=== PATIENT | female | born 1955 | race American Indian/Alaskan Native ===

== ENCOUNTER 2021-02-10 12:45 | Inpatient (IN) | payer MEDICARE ==
--- NOTE | 2021-02-10 13:23 | Emergency Department Report ---
HPI - General Time Seen by Provider: 02/10/21 13:06 - HPI HPI: Room 24 The patient is a 66-year-old female present with a chief complaint of palpitations. The patient states she was at [employer] standing putting together gift baskets when she suddenly felt her heart start racing. The patient states her watch indicated her heart rate was approximately 160/170 bpm. Patient jamey ed having chest pain and is uncertain if she developed shortness of breath but states she has some numbness in her feet. The patient states while driving home she began to feel dizzy and near syncopal but was able to make it home and call 911. EMS arrived found the patient in SVT with a heart rate of 165. The patient was administered adenosine 6 mg, another 6 mg and then 12 mg with successful conversion into normal sinus rhythm. When asked how she is feeling the patient states now she feels "fine." ED Past Medical Hx - Past Medical History Previous Medical History?: No - Surgical History Additional Surgical History: Back surgery - Family History Family history: no significant - Social History Smoking Status: Former Smoker (None x20 years) Substance Use Type: None (Denies illicit drug use), Alcohol (Moderate/occasional) - Medications Home Medications: Home Medications Medication Instructions Recorded Confirmed Last Taken Type No Known Home Medications [No 02/10/21 02/10/21 Unknown History Reported Home Medications] ED Review of Systems ROS: Stated complaint: HIGH HEART RATE Other details as noted in HPI Constitutional: no symptoms reported Eyes: denies: eye pain ENT: denies: throat pain Respiratory: shortness of breath (?) Cardiovascular: palpitations. denies: chest pain Endocrine: no symptoms reported Gastrointestinal: denies: abdominal pain Genitourinary: denies: dysuria Musculoskeletal: denies: back pain Neurological: other (Dizziness) Physical Exam - Physical Exam Physical Exam: GENERAL: The patient is well-developed well-nourished female lying on stretcher not appearing to be in acute distress. [] HEENT: Normocephalic. Atraumatic. Extraocular motions are intact. Patient has moist mucous membranes. NECK: Supple. Trachea midline CHEST/LUNGS: Clear to auscultation. There is no respiratory distress noted. HEART/CARDIOVASCULAR: Regular. There is no tachycardia. There is no gallop rub or murmur. ABDOMEN: Abdomen is soft, nontender. Patient has normal bowel sounds. There is no abdominal distention. SKIN: There is no rash. There is no edema. There is no diaphoresis. NEURO: The patient is awake, alert, and oriented. The patient is cooperative. The patient has no focal neurologic deficits. The patient has normal speech. GCS 15 MUSCULOSKELETAL: There is no evidence of acute injury. ED Medical Decision Making - Lab Data Result diagrams: 02/10/21 13:49 02/10/21 13:49 Laboratory Tests 02/10/21 02/10/21 02/10/21 13:23 13:49 13:49 WBC 6.4 RBC 4.65 Hgb 14.6 H Hct 41.0 MCV 88 MCH 32 MCHC 36 H RDW 13.4 Plt Count 177 Lymph % (Auto) 36.8 H [place] % (Auto) 10.2 H Eos % (Auto) 0.8 Baso % (Auto) 0.4 Lymph # (Auto) 2.3 [place] # (Auto) 0.6 Eos # (Auto) 0.0 Baso # (Auto) 0.0 Seg Neutrophils % 51.8 Seg Neutrophils # 3.3 Sodium 145 Potassium 3.9 Chloride 109.5 H Carbon Dioxide 23 Anion Gap 16 BUN 11 Creatinine 0.9 Estimated GFR > 60 BUN/Creatinine Ratio 12 Glucose 104 H Calcium 9.4 Magnesium 2.00 Total Bilirubin 0.50 AST 16 ALT 17 Alkaline Phosphatase 69 Total Creatine Kinase 132 CK-MB (CK-2) 2.6 CK-MB (CK-2) Rel Index 1.9 Troponin T 0.019 Total Protein 7.4 Albumin 4.5 Albumin/Globulin Ratio 1.6 TSH Free T4 Urine Opiates Screen Negative Urine Methadone Screen Negative Ur Barbiturates Screen Negative Ur Phencyclidine Scrn Negative Ur Amphetamines Screen Negative U Benzodiazepines Scrn Negative Urine Cocaine Screen Negative U Marijuana (THC) Screen Negative Drugs of Abuse Note Disclamer 02/10/21 13:49 WBC RBC Hgb Hct MCV MCH MCHC RDW Plt Count Lymph % (Auto) [place] % (Auto) Eos % (Auto) Baso % (Auto) Lymph # (Auto) [place] # (Auto) Eos # (Auto) Baso # (Auto) Seg Neutrophils % Seg Neutrophils # Sodium Potassium Chloride Carbon Dioxide Anion Gap BUN Creatinine Estimated GFR BUN/Creatinine Ratio Glucose Calcium Magnesium Total Bilirubin AST ALT Alkaline Phosphatase Total Creatine Kinase CK-MB (CK-2) CK-MB (CK-2) Rel Index Troponin T Total Protein Albumin Albumin/Globulin Ratio TSH 1.310 Free T4 1.02 Urine Opiates Screen Urine Methadone Screen Ur Barbiturates Screen Ur Phencyclidine Scrn Ur Amphetamines Screen U Benzodiazepines Scrn Urine Cocaine Screen U Marijuana (THC) Screen Drugs of Abuse Note - Radiology Data Radiology results: report reviewed (Chest x-ray), image reviewed (Chest x-ray) interpreted by me: Chest x-ray-no definite focal infiltrates, no pneumothorax [facility] [address] [place] [address] XRay Report Signed Patient: OPAL DAHL MR#: [id number] : 1955 Acct:[id number] Age/Sex: 66 / F ADM Date: 02/10/21 Loc: ED Attending Dr: Ordering Physician: LLOYD KRAFT MD Date of Service: 02/10/21 Procedure(s): XR chest 1V ap Accession Number(s): [id number] cc: LLOYD KRAFT MD Fluoro Time In Minutes: CHEST 1 VIEW INDICATION / CLINICAL INFORMATION: SVT. COMPARISON: None available. FINDINGS: SUPPORT DEVICES: None. HEART / MEDIASTINUM: No significant abnormality. LUNGS / PLEURA: Pulmonary vascularity appears mildly congested w ithout overt interstitial pulmonary edema. The lungs are otherwise clear. No pleural effusion. No pneumothorax. ADDITIONAL FINDINGS: No significant additional findings. IMPRESSION: 1. Mild pulmonary vascular congestion. Signer Name: Teodora Felipe MD Signed: 02/10/2021 2:27 PM Workstation Name: [id number] Transcribed By: JR Dictated By: Teodora Felipe MD Electronically Authenticated By: Teodora Felipe MD Signed Date/Time: 02/10/211426 DD/ 26 TD/TT: Print Cancel - Differential Diagnosis PSVT Critical care attestation.: If time is entered above; I have spent that time in minutes in the direct care of this critically ill patient, excluding procedure time. ED Disposition Clinical Impression: PSVT (paroxysmal supraventricular tachycardia) Disposition: ADMITTED INPATIENT Is pt being admited?: Yes Does the pt Need Aspirin: Yes Condition: Fair Time of Disposition: 15:18 (Hospitalist called (Dr. Garcia))
[2021-02-10 13:52] LABS: Amphetamine Screen,Urine Negative; Benzodiazepines Screen,Urine Negative; Cannabinoid Screen,Urine Negative; Cocaine Screen,Urine Negative; Methadone Screen,Urine Negative; Opiate Screen,Urine Negative
--- NOTE | 2021-02-10 14:31 | XRay Report ---
CHEST 1 VIEW INDICATION / CLINICAL INFORMATION: SVT. COMPARISON: None available. FINDINGS: SUPPORT DEVICES: None. HEART / MEDIASTINUM: No significant abnormality. LUNGS / PLEURA: Pulmonary vascularity appears mildly congested without overt interstitial pulmonary e facundo. The lungs are otherwise clear. No pleural effusion. No pneumothorax. ADDITIONAL FINDINGS: No significant additional findings. IMPRESSION: 1. Mild pulmonary vascular congestion. Signer Name: Teodora Felipe MD Signed: 02/10/2021 2:27 PM Workstation Name: [id number]
[2021-02-10 14:43] LABS: Basophils % (Auto) 0.4 % (0.0-1.8); Eosinophils % (Auto) 0.8 % (0.0-4.3); Hemoglobin 14.6 gm/dl (10.1-14.3); Lymphocytes # (Auto) 2.3 K/mm3 (1.2-5.4); Lymphocytes % (Auto) 36.8 % (13.4-35.0); Mean Corpuscular HGB Conc 36 % (30-34); Mean Corpuscular Volume 88 fl (79-97); Monocytes # (Auto) 0.6 K/mm3 (0.0-0.8); Monocytes % (Auto) 10.2 % (0.0-7.3); Platelet Count 177 K/mm3 (140-440); Red Blood Count 4.65 M/mm3 (3.65-5.03); Red Cell Distribution Width 13.4 % (13.2-15.2)
[2021-02-10 14:57] LABS: Alanine Aminotransferase 17 units/L (7-56); Albumin 4.5 g/dL (3.9-5); BUN/Creatinine Ratio 12; Blood Urea Nitrogen 11 mg/dL (7-17); Calcium 9.4 mg/dL (8.4-10.2); Creatine Kinase MB 2.6 ng/mL (0.0-4.0); Hemolysis Index 5
[2021-02-10 15:07] LABS: Free T4 (Free Thyroxine) 1.02 ng/dL (0.76-1.46)
[2021-02-10] MEDS ORDERED: ASPIRIN 325 MG TAB PO ONE (15:18)
--- NOTE | 2021-02-10 18:00 | History and Physical Report ---
History of Present Illness Date of examination: 02/10/21 Date of admission: 02/10/21 15:20 Chief complaint: Palpitations since 11:30 AM History of present illness: 66-year-old female with no significant past medical history comes in for palpitations since 11:30 AM. Patient was at discharge and she felt that her heart was racing. Patient says her heart rate was around 1 60-1 70 as indicated by her watch. No chest pain. Patient had similar episode 3 to 4 years ago and was placed on Holter monitor by [facility] heart specialists and patient also had echocardiogram at that time. No SVT was diagnosed. Patient is not on any medications. Patient has no fever or chills. No other follow-up the last 1 she was lying 5 okay symptoms. No cough or shortness of breath. When the EMS arrived they found the patient to be in a SVT with a heart rate of around 165. The patient was administered an oxygen 6 mg followed by 6 mg and then 12 mg when successful conversion to sinus rhythm happened. After cardioversion patient feels symptomatically better. - Past Medical History --Previous Medical History?: No - Surgical History --Additional Surgical History: Back surgery - Family History --Family history: no significant - Social History --Smoking Status: Former Smoker (None x20 years) --Substance Use Type: None (Denies illicit drug use), Alcohol (Moderate/occasional) - Medications Home Medications: Home Medications Medication Instructions Recorded Confirmed Last Taken Type No Known Home Medications [No 02/10/21 02/10/21 Unknown History Reported Home Medications] Review of Systems ROS: Constitutional no weight loss or weight gain no fever or chills HEENT no sore throat no post nasal drip no diplopia Neck no neck stiffness no lymph gland enlargement Chest and lungs no shortness of breath cough or wheezing CVS palpitations since 11:30 AM. 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 Skin no rash no itching Psychiatric no depression no homicidal or suicidal tendencies Hematologic no lymphedema or bruising Endocrine no polydipsia no polyuria no cold intolerance no heat intolerance Medications and Allergies Allergies Allergy/AdvReac Type Severity Reaction Status Date / Time No Known Allergies Allergy Unverified 02/10/21 14:10 Home Medications Medication Instructions Recorded Confirmed Last Taken Type No Known Home Medications [No 02/10/21 02/10/21 Unknown History Reported Home Medications] Exam - Constitutional Vitals: Temp Pulse Resp BP Pulse Ox 98.1 F 71 18 149/78 98 02/10/21 14:10 02/10/21 17:30 02/10/21 17:30 02/10/21 17:30 02/10/21 15:00 General appearance: Present: no acute distress, well-nourished - EENT Eyes: Present: PERRL ENT: hearing intact, clear oral mucosa - Neck Neck: Present: supple, normal ROM - Respiratory Respiratory effort: normal Respiratory: bilateral: CTA - Cardiovascular Heart rate: 78 Rhythm: regular Heart Sounds: Present: S1 & S2. Absent: rub, click - Extremities Extremities: no ischemia, pulses intact, pulses symmetrical, No edema Peripheral Pulses: within normal limits - Abdominal General gastrointestinal: Present: soft, non-tender, non-distended, normal bowel sounds Female genitourinary: Present: normal - Rectal Rectal Exam: deferred - Integumentary Integumentary: Present: clear, warm, dry - Musculoskeletal Musculoskeletal: gait normal, strength equal bilaterally - Psychiatric Psychiatric: appropriate mood/affect, intact judgment & insight - Neurologic Neurologic: CNII-XII intact, moves all extremities - Allied Health Allied health notes reviewed: nursing, case management HEART Score - HEART Score History: Moderately suspicious Age: > 65 Risk factors: No known risk factors Troponin: Troponin T 0.019 ng/mL (0.00-0.029) 02/10/21 13:49 Troponin: < normal limit - Critical Actions Critical Actions: 0-3 pts:0.9-1.7%risk of adverse cardiac event.Candidate for discharge Results - Labs CBC & Chem 7: 02/10/21 13:49 02/10/21 13:49 Labs: Laboratory Last Values WBC 6.4 K/mm3 (4.5-11.0) 02/10/21 13:49 RBC 4.65 M/mm3 (3.65-5.03) 02/10/21 13:49 Hgb 14.6 gm/dl (10.1-14.3) H 02/10/21 13:49 Hct 41.0 % (30.3-42.9) 02/10/21 13:49 MCV 88 fl (79-97) 02/10/21 13:49 MCH 32 pg (28-32) 02/10/21 13:49 MCHC 36 % (30-34) H 02/10/21 13:49 RDW 13.4 % (13.2-15.2) 02/10/21 13:49 Plt Count 177 K/mm3 (140-440) 02/10/21 13:49 Lymph % (Auto) 36.8 % (13.4-35.0) H 02/10/21 13:49 [place] % (Auto) 10.2 % (0.0-7.3) H 02/10/21 13:49 Eos % (Auto) 0.8 % (0.0-4.3) 02/10/21 13:49 Baso % (Auto) 0.4 % (0.0-1.8) 02/10/21 13:49 Lymph # (Auto) 2.3 K/mm3 (1.2-5.4) 02/10/21 13:49 [place] # (Auto) 0.6 K/mm3 (0.0-0.8) 02/10/21 13:49 Eos # (Auto) 0.0 K/mm3 (0.0-0.4) 02/10/21 13:49 Baso # (Auto) 0.0 K/mm3 (0.0-0.1) 02/10/21 13:49 Seg Neutrophils % 51.8 % (40.0-70.0) 02/10/21 13:49 Seg Neutrophils # 3.3 K/mm3 (1.8-7.7) 02/10/21 13:49 Sodium 145 mmol/L (137-145) 02/10/21 13:49 Potassium 3.9 mmol/L (3.6-5.0) 02/10/21 13:49 Chloride 109.5 mmol/L (98-107) H 02/10/21 13:49 Carbon Dioxide 23 mmol/L (22-30) 02/10/21 13:49 Anion Gap 16 mmol/L 02/10/21 13:49 BUN 11 mg/dL (7-17) 02/10/21 13:49 Creatinine 0.9 mg/dL (0.6-1.2) 02/10/21 13:49 Estimated GFR > 60 ml/min 02/10/21 13:49 BUN/Creatinine Ratio 12 % 02/10/21 13:49 Glucose 104 mg/dL (65-100) H 02/10/21 13:49 Calcium 9.4 mg/dL (8.4-10.2) 02/10/21 13:49 Magnesium 2.00 mg/dL (1.7-2.3) 02/10/21 13:49 Total Bilirubin 0.50 mg/dL (0.1-1.2) 02/10/21 13:49 AST 16 units/L (5-40) 02/10/21 13:49 ALT 17 units/L (7-56) 02/10/21 13:49 Alkaline Phosphatase 69 units/L (35-129) 02/10/21 13:49 Total Creatine Kinase 132 units/L (30-135) 02/10/21 13:49 CK-MB (CK-2) 2.6 ng/mL (0.0-4.0) 02/10/21 13:49 CK-MB (CK-2) Rel Index 1.9 (0-4) 02/10/21 13:49 Troponin T 0.019 ng/mL (0.00-0.029) 02/10/21 13:49 Total Protein 7.4 g/dL (6.3-8.2) 02/10/21 13:49 Albumin 4.5 g/dL (3.9-5) 02/10/21 13:49 Albumin/Globulin Ratio 1.6 % 02/10/21 13:49 TSH 1.310 mlU/mL (0.270-4.200) 02/10/21 13:49 Free T4 1.02 ng/dL (0.76-1.46) 02/10/21 13:49 Urine Opiates Screen Negative 02/10/21 13:23 Urine Methadone Screen Negative 02/10/21 13:23 Ur Barbiturates Screen Negative 02/10/21 13:23 Ur Phencyclidine Scrn Negative 02/10/21 13:23 Ur Amphetamines Screen Negative 02/10/21 13:23 U Benzodiazepines Scrn Negative 02/10/21 13:23 Urine Cocaine Screen Negative 02/10/21 13:23 U Marijuana (THC) Screen Negative 02/10/21 13:23 Drugs of Abuse Note Disclamer 02/10/21 13:23 - Imaging and Cardiology EKG: report reviewed Chest x-ray: report reviewed (Mild pulmonary vascular congestion) Imaging and Cardiology: First set of EKG shows SVT with heart rate of 163/min. Second EKG shows sinus rhythm with heart rate of 85/min no acute ST-T wave changes probable left atrial enlargement. Assessment and Plan Advance Directives: Yes (Full code) VTE prophylaxis?: Chemical Plan of care discussed with patient/family: Yes - Patient Problems (1) Supraventricular tachycardia Current Visit: Yes Status: Acute Plan to address problem: Patient was given adenosine 6 mg twice followed by 12 mg once after which patient cardioverted. Patient in stable rhythm while in the emergency room. Patient started on Cardizem CD 120 mg once a day. Patient has borderline hypertension. blood pressure ranging from 172/94-149/78. (2) Hypertension Current Visit: Yes Status: Acute Qualifiers: Hypertension type: primary hypertension Qualified Code(s): I10 - Essential (primary) hypertension Plan to address problem: Patient started on Cardizem CD 120 mg once a day which is beneficial in paroxysmal SVT Monitor blood pressure and adjust medications (3) DVT prophylaxis Current Visit: Yes Status: Acute Plan to address problem: On heparin and GI prophylaxis
[2021-02-10] MEDS ORDERED: MORPHINE 2 MG/1 ML INJ IV PRN (18:03)
[2021-02-10] MEDS ORDERED: HYDROmorphone 1 MG/1 ML INJ IV PRN (18:03)
[2021-02-10] MEDS ORDERED: ONDANSETRON 4 MG/2 ML INJ IV PRN (18:03)
[2021-02-10] MEDS ORDERED: ACETAMINOPHEN 325 MG TAB PO PRN (18:03)
[2021-02-10] MEDS ORDERED: SODIUM CHLORIDE 0.9% 1000 ML 1,000 ML IV SCH (18:15)
[2021-02-10] MEDS ORDERED: dilTIAZem CD 120 MG CAP PO SCH (19:00)
[2021-02-10] MEDS: HEPARIN 5,000 UNIT/1 ML VIAL SUB-Q SCH (21:09)
[2021-02-10] MEDS: FAMOTIDINE 20 MG TAB PO SCH (21:09)
[2021-02-10] MEDS ORDERED: hydrALAZINE 20 MG/1 ML INJ IV PRN (22:08)
[2021-02-11 06:00] LABS: Basophils % (Auto) 0.6 % (0.0-1.8); Eosinophils # (Auto) 0.1 K/mm3 (0.0-0.4); Eosinophils % (Auto) 1.9 % (0.0-4.3); Hemoglobin 12.9 gm/dl (10.1-14.3); Lymphocytes % (Auto) 50.9 % (13.4-35.0); Mean Corpuscular HGB Conc 36 % (30-34); Mean Corpuscular Volume 88 fl (79-97); Monocytes # (Auto) 0.7 K/mm3 (0.0-0.8); Monocytes % (Auto) 11.5 % (0.0-7.3); Platelet Count 158 K/mm3 (140-440); Red Blood Count 4.08 M/mm3 (3.65-5.03); Red Cell Distribution Width 13.6 % (13.2-15.2)
[2021-02-11 06:28] LABS: Alanine Aminotransferase 13 units/L (7-56); BUN/Creatinine Ratio 16; Blood Urea Nitrogen 13 mg/dL (7-17); Calcium 8.6 mg/dL (8.4-10.2); Hemolysis Index 3
[2021-02-11] MEDS ORDERED: METOPROLOL TARTRATE 50 MG TAB PO SCH (10:00)
[2021-02-11] MEDS: POTASSIUM CHLORIDE ER 20 MEQ TAB PO SCH ×2 (10:27→14:09)
[2021-02-11] MEDS: HEPARIN 5,000 UNIT/1 ML VIAL SUB-Q SCH ×2 (10:27→22:54)
[2021-02-11] MEDS: FAMOTIDINE 20 MG TAB PO SCH ×2 (10:27→22:55)
[2021-02-11] MEDS ORDERED: PNEUMOCOCCAL 23 Valent 0.5 ML VIAL IM ONE (12:00)
--- NOTE | 2021-02-11 12:47 | Progress Note ---
Assessment and Plan Assessment and plan: Assessment and Plan - Patient Problems (1) Supraventricular tachycardia Current Visit: Yes Status: Acute Plan to address problem: Patient was given adenosine 6 mg twice followed by 12 mg once after which patient cardioverted. Patient in stable rhythm while in the emergency room. Patient started on Cardizem CD 120 mg once a day. Patient has borderline hypertension. blood pressure ranging from 172/94-149/78. (2) Hypertension Current Visit: Yes Status: Acute Qualifiers: Hypertension type: primary hypertension Qualified Code(s): I10 - Essential (primary) hypertension Plan to address problem: Patient started on Cardizem CD 120 mg once a day which is beneficial in paroxysmal SVT Monitor blood pressure and adjust medications (3) DVT prophylaxis Current Visit: Yes Status: Acute Plan to address problem: On heparin and GI prophylaxis 02/11/21 Patient with SVT. Managed with adenosine. Currently no palpitations or chest pain. cardiology consulted. History Interval history: Patient presented with palpitations, diagnosed with SVT Hospitalist Physical - Physical exam Narrative exam: Gen: Not in acute distress, lying in bed HEENT: Normocephalic, atraumatic Neck: Supple, no JVD Lungs: Clear to auscultation bilaterally, no wheeze Heart: S1 and S2 reg, no murmurs, rubs or gallop Abd:soft, non-tender, non distended, normal bowel sounds Ext: No edema, clubbing or cyanosis Neuro: Awake, alert, oriented X 3, moves all extremities - Constitutional Vitals: Temp Pulse Resp BP Pulse Ox 99.4 F 79 18 162/73 98 02/11/21 08:13 02/11/21 12:00 02/11/21 08:13 02/11/21 08:13 02/11/21 12:00 General appearance: Present: no acute distress, well-nourished HEART Score - HEART Score Age: > 65 Risk factors: No known risk factors Troponin: Troponin T 0.019 ng/mL (0.00-0.029) 02/10/21 13:49 Troponin: < normal limit - Critical Actions Critical Actions: 0-3 pts:0.9-1.7%risk of adverse cardiac event.Candidate for discharge Results - Labs CBC & Chem 7: 02/11/21 04:52 02/11/21 04:52 Labs: Laboratory Last Values WBC 5.9 K/mm3 (4.5-11.0) 02/11/21 04:52 RBC 4.08 M/mm3 (3.65-5.03) 02/11/21 04:52 Hgb 12.9 gm/dl (10.1-14.3) 02/11/21 04:52 Hct 36.0 % (30.3-42.9) 02/11/21 04:52 MCV 88 fl (79-97) 02/11/21 04:52 MCH 32 pg (28-32) 02/11/21 04:52 MCHC 36 % (30-34) H 02/11/21 04:52 RDW 13.6 % (13.2-15.2) 02/11/21 04:52 Plt Count 158 K/mm3 (140-440) 02/11/21 04:52 Lymph % (Auto) 50.9 % (13.4-35.0) H 02/11/21 04:52 [place] % (Auto) 11.5 % (0.0-7.3) H 02/11/21 04:52 Eos % (Auto) 1.9 % (0.0-4.3) 02/11/21 04:52 Baso % (Auto) 0.6 % (0.0-1.8) 02/11/21 04:52 Lymph # (Auto) 3.0 K/mm3 (1.2-5.4) 02/11/21 04:52 [place] # (Auto) 0.7 K/mm3 (0.0-0.8) 02/11/21 04:52 Eos # (Auto) 0.1 K/mm3 (0.0-0.4) 02/11/21 04:52 Baso # (Auto) 0.0 K/mm3 (0.0-0.1) 02/11/21 04:52 Seg Neutrophils % 35.1 % (40.0-70.0) L 02/11/21 04:52 Seg Neutrophils # 2.1 K/mm3 (1.8-7.7) 02/11/21 04:52 Sodium 143 mmol/L (137-145) 02/11/21 04:52 Potassium 3.2 mmol/L (3.6-5.0) L 02/11/21 04:52 Chloride 108.3 mmol/L (98-107) H 02/11/21 04:52 Carbon Dioxide 23 mmol/L (22-30) 02/11/21 04:52 Anion Gap 15 mmol/L 02/11/21 04:52 BUN 13 mg/dL (7-17) 02/11/21 04:52 Creatinine 0.8 mg/dL (0.6-1.2) 02/11/21 04:52 Estimated GFR > 60 ml/min 02/11/21 04:52 BUN/Creatinine Ratio 16 % 02/11/21 04:52 Glucose 91 mg/dL (65-100) 02/11/21 04:52 Calcium 8.6 mg/dL (8.4-10.2) 02/11/21 04:52 Magnesium 2.00 mg/dL (1.7-2.3) 02/10/21 13:49 Total Bilirubin 0.60 mg/dL (0.1-1.2) 02/11/21 04:52 AST 19 units/L (5-40) 02/11/21 04:52 ALT 13 units/L (7-56) 02/11/21 04:52 Alkaline Phosphatase 58 units/L (35-129) 02/11/21 04:52 Total Creatine Kinase 132 units/L (30-135) 02/10/21 13:49 CK-MB (CK-2) 2.6 ng/mL (0.0-4.0) 02/10/21 13:49 CK-MB (CK-2) Rel Index 1.9 (0-4) 02/10/21 13:49 Troponin T 0.019 ng/mL (0.00-0.029) 02/10/21 13:49 Total Protein 6.6 g/dL (6.3-8.2) 02/11/21 04:52 Albumin 4.0 g/dL (3.9-5) 02/11/21 04:52 Albumin/Globulin Ratio 1.5 % 02/11/21 04:52 TSH 1.310 mlU/mL (0.270-4.200) 02/10/21 13:49 Free T4 1.02 ng/dL (0.76-1.46) 02/10/21 13:49 Urine Opiates Screen Negative 02/10/21 13:23 Urine Methadone Screen Negative 02/10/21 13:23 Ur Barbiturates Screen Negative 02/10/21 13:23 Ur Phencyclidine Scrn Negative 02/10/21 13:23 Ur Amphetamines Screen Negative 02/10/21 13:23 U Benzodiazepines Scrn Negative 02/10/21 13:23 Urine Cocaine Screen Negative 02/10/21 13:23 U Marijuana (THC) Screen Negative 02/10/21 13:23 Drugs of Abuse Note Disclamer 02/10/21 13:23 [place]/IV: Voiding Method Toilet Active Medications - Current Medications Current Medications: Generic Name Dose Route Start Last Admin Trade Name Freq PRN Reason Stop Dose Admin Acetaminophen 650 mg 02/10/21 18:03 02/11/21 08:15 Acetaminophen 325 Mg Tab PO 650 mg Q4H PRN Administration Pain MILD(1-3)/Fever >100.5/HYATT Famotidine 20 mg 02/10/21 22:00 02/11/21 10:27 Famotidine 20 Mg Tab PO 20 mg BID PAVAN Administration Heparin Sodium (Porcine) 5,000 unit 02/10/21 22:00 02/11/21 10:27 Heparin 5,000 Unit/1 Ml Vial SUB-Q 5,000 unit Q12HR PAVAN Administration Hydromorphone HCl 0.5 mg 02/10/21 18:03 Hydromorphone 1 Mg/1 Ml Inj IV Q3H PRN Pain , Severe (7-10) Metoprolol Tartrate 50 mg 02/11/21 10:00 02/11/21 10:27 Metoprolol Tartrate 50 Mg Tab PO 50 mg BID PAVAN Administration Morphine Sulfate 2 mg 02/10/21 18:03 Morphine 2 Mg/1 Ml Inj IV Q4H PRN Pain, Moderate (4-6) Ondansetron HCl 4 mg 02/10/21 18:03 Ondansetron 4 Mg/2 Ml Inj IV Q8H PRN Nausea And Vomiting Potassium Chloride 40 meq 02/11/21 08:00 02/11/21 10:27 Potassium Chloride Er 20 Meq Tab PO 02/11/21 14:01 40 meq Q6H PAAVN Administration Sodium Chloride 10 ml 02/10/21 22:00 02/11/21 10:28 Sodium Chloride 0.9% 10 Ml Flush Syringe IV 10 ml BID PAVAN Administration Sodium Chloride 10 ml 02/10/21 18:03 Sodium Chloride 0.9% 10 Ml Flush Syringe IV PRN PRN LINE FLUSH
[2021-02-11 15:51] LABS: Blood Urea Nitrogen 12 mg/dL (7-17); Hemolysis Index 3
[2021-02-11 15:52] LABS: BUN/Creatinine Ratio 17
--- NOTE | 2021-02-11 15:56 | Consultation ---
History of Present Illness Consult date: 02/11/21 Requesting physician: TYRA PENA Consult reason: other (SVT) History of present illness: While working at a [employer] event yesterday, the patient claims that she suddenly developed shortness of breath with palpitations. She went home and checked her BP and claims that her SBP was 200. Due to persistence of symptoms, she activated the EMS and she was found to be in SVT for which she received adenosine twice with conversion to sinus rhythm. She denies chest pain or dizziness. She is currently in normal sinus rhythm. Her labs showed normal TSH with hypokalemia of 3.2. Although she has no prior history of hypertension, her BP has been elevated since admission. Past History Past Medical History: hyperlipidemia Past Surgical History: Other (back surgery) Social history: denies: smoking, alcohol abuse Family history: denies: CAD Medications and Allergies Allergies Allergy/AdvReac Type Severity Reaction Status Date / Time No Known Allergies Allergy Unverified 02/10/21 14:10 Home Medications Medication Instructions Recorded Confirmed Last Taken Type No Known Home Medications [No 02/10/21 02/10/21 Unknown History Reported Home Medications] Active Meds: Active Medications Acetaminophen (Acetaminophen 325 Mg Tab) 650 mg PO Q4H PRN PRN Reason: Pain MILD(1-3)/Fever >100.5/HYATT Last Admin: 02/11/21 08:15 Dose: 650 mg Documented by: Famotidine (Famotidine 20 Mg Tab) 20 mg PO BID [facility] Last Admin: 02/11/21 10:27 Dose: 20 mg Documented by: Heparin Sodium (Porcine) (Heparin 5,000 Unit/1 Ml Vial) 5,000 unit SUB-Q Q12HR [facility] Last Admin: 02/11/21 10:27 Dose: 5,000 unit Documented by: Hydromorphone HCl (Hydromorphone 1 Mg/1 Ml Inj) 0.5 mg IV Q3H PRN PRN Reason: Pain , Severe (7-10) Losartan Potassium (Losartan 50 Mg Tab) 100 mg PO QDAY [facility] Metoprolol Tartrate (Metoprolol Tartrate 50 Mg Tab) 50 mg PO TID [facility] Morphine Sulfate (Morphine 2 Mg/1 Ml Inj) 2 mg IV Q4H PRN PRN Reason: Pain, Moderate (4-6) Ondansetron HCl (Ondansetron 4 Mg/2 Ml Inj) 4 mg IV Q8H PRN PRN Reason: Nausea And Vomiting Sodium Chloride (Sodium Chloride 0.9% 10 Ml Flush Syringe) 10 ml IV BID [facility] Last Admin: 02/11/21 10:28 Dose: 10 ml Documented by: Sodium Chloride (Sodium Chloride 0.9% 10 Ml Flush Syringe) 10 ml IV PRN PRN PRN Reason: LINE FLUSH Review of Systems Constitutional: no fever, no chills Ears, nose, mouth and throat: no ear pain, no ear discharge, no sore throat Cardiovascular: palpitations, shortness of breath, no chest pain, no lightheadedness Respiratory: no cough, no shortness of breath Gastrointestinal: no abdominal pain, no nausea, no vomiting, no diarrhea, no constipation Genitourinary Female: no dysuria, no urinary frequency Rectal: no pain, no bleeding Musculoskeletal: no neck stiffness, no neck pain, no myalgias Integumentary: no rash Neurological: no weakness, no parathesias, no headaches Endocrine: no cold intolerance, no heat intolerance Hematologic/Lymphatic: no easy bruising, no easy bleeding Allergic/Immunologic: no urticaria, no wheezing Physical Examination Vital Signs Last Vital Signs Temp 99.4 F 02/11/21 08:13 Pulse 79 02/11/21 12:00 Resp 18 02/11/21 08:13 BP 162/73 02/11/21 08:13 Pulse Ox 98 02/11/21 12:00 General appearance: no acute distress HEENT: Positive: EOMI, Normocephaly, Mucus Membranes Moist Neck: Positive: neck supple, trachea midline Cardiac: Positive: Reg Rate and Rhythm, S1/S2 Lungs: Positive: clear to auscultation Neuro: Positive: Grossly Intact Abdomen: Positive: Soft, Active Bowel Sounds. Negative: Tender Skin: Positive: Clear. Negative: Rash Musculoskeletal: Normal Range of Motion Extremities: Present: normal. Absent: edema Results 02/11/21 04:52 02/11/21 04:52 Cardiac Enzymes 02/11/21 Range/Units 04:52 AST 19 (5-40) units/L CBC 02/11/21 Range/Units 04:52 WBC 5.9 (4.5-11.0) K/mm3 RBC 4.08 (3.65-5.03) M/mm3 Hgb 12.9 (10.1-14.3) gm/dl Hct 36.0 (30.3-42.9) % Plt Count 158 (140-440) K/mm3 Lymph # (Auto) 3.0 (1.2-5.4) K/mm3 Upson # (Auto) 0.7 (0.0-0.8) K/mm3 Eos # (Auto) 0.1 (0.0-0.4) K/mm3 Baso # (Auto) 0.0 (0.0-0.1) K/mm3 Comprehensive Metabolic Panel 02/11/21 Range/Units 04:52 Sodium 143 (137-145) mmol/L Potassium 3.2 L (3.6-5.0) mmol/L Chloride 108.3 H (98-107) mmol/L Carbon Dioxide 23 (22-30) mmol/L BUN 13 (7-17) mg/dL Creatinine 0.8 (0.6-1.2) mg/dL Glucose 91 (65-100) mg/dL Calcium 8.6 (8.4-10.2) mg/dL AST 19 (5-40) units/L ALT 13 (7-56) units/L Alkaline Phosphatase 58 (35-129) units/L Total Protein 6.6 (6.3-8.2) g/dL Albumin 4.0 (3.9-5) g/dL - Imaging and Cardiology EKG: pending Assessment and Plan initiate metoprolol. Optimize antihypertensive regimen. Supplement potassium. Obtain echocardiogram. If she remains stable tomorrow, she may be discharged home to follow up at our office. - Patient Problems (1) Supraventricular tachycardia Current Visit: Yes Status: Acute (2) Hypertension Current Visit: Yes Status: Acute Qualifiers: Hypertension type: primary hypertension Qualified Code(s): I10 - Essential (primary) hypertension
[2021-02-11] MEDS: LOSARTAN 50 MG TAB PO SCH (17:36)
[2021-02-11] MEDS: METOPROLOL TARTRATE 50 MG TAB PO SCH (22:54)
[2021-02-12] MEDS: HEPARIN 5,000 UNIT/1 ML VIAL SUB-Q SCH (10:35)
[2021-02-12] MEDS: LOSARTAN 50 MG TAB PO SCH (10:36)
[2021-02-12] MEDS: METOPROLOL TARTRATE 50 MG TAB PO SCH (10:38)
[2021-02-12] MEDS: FAMOTIDINE 20 MG TAB PO SCH (10:38)
[2021-02-12 10:48] VITALS: BP 148/78
--- NOTE | 2021-02-12 10:59 | Electrocardiograph Report ---
[facility] Test Date: 2021-02-10 Test Time: 13:44:16 Pat Name: OPAL DAHL Department: Room: A465 Gender: F Javascript Programmer: LOLIS : [id number] Requested By: LLOYD KRAFT Order Number: [id number] Reading MD: Florian Melendez Measurements Intervals [place] Rate: 85 P: 12 WA: 146 QRS: 62 QRSD: 73 T: 24 QT: 368 QTc: 439 Interpretive Statements Sinus rhythm Probable left atrial enlargement No previous ECG available for comparison Electronically Signed On 02-12-2021 10:58:52 EDT by Florian Melendez
--- NOTE | 2021-02-12 13:10 | Progress Note ---
Assessment and Plan Preliminary Echo shows EF 55-60% trace ME, Trace-Mild TR and mild diastolic dysfunction Cardiac status is stable. Patient may be discharged from a cardiac perspective Patient has a follow up appointment with Dr. Fuchs, [facility], on 03/07/2021 at 1:15pm at our [facility] location. Patient has a follow up appointment with Dr. Davis, [facility], on 03/09/2021 at 1:15pm at our [place] location. Patient seen in conjunction with Dr. Melendez who agrees with this plan of care. Will sign off - Patient Problems (1) Hypertension Current Visit: Yes Status: Acute Qualifiers: Hypertension type: primary hypertension Qualified Code(s): I10 - Essential (primary) hypertension (2) PSVT (paroxysmal supraventricular tachycardia) Current Visit: Yes Status: Acute Subjective Date of service: 02/12/21 Principal diagnosis: SVT Interval history: Patient sitting in chair with no cardiac complaints Sinus 65 on monitor Objective Vital Signs Temp Pulse Resp BP Pulse Ox 02/12/21 10:38 58 L 02/12/21 10:36 60 148/78 02/12/21 07:54 97.7 F 58 L 18 141/73 96 02/12/21 04:57 98.5 F 56 L 18 135/68 99 02/12/21 00:25 98.1 F 52 L 18 151/65 98 02/12/21 00:00 54 L 02/11/21 22:54 62 160/74 02/11/21 22:00 99 02/11/21 21:03 98.2 F 62 18 160/74 99 02/11/21 15:11 98.9 F 56 L 20 142/69 98 - Physical Examination HEENT: Positive: EOMI, Normocephaly, Mucus Membranes Moist Neck: Positive: neck supple, trachea midline Cardiac: Positive: Reg Rate and Rhythm Lungs: Positive: Normal Breath Sounds Neuro: Positive: Grossly Intact Abdomen: Positive: Soft, Active Bowel Sounds. Negative: Tender Skin: Positive: Clear. Negative: Rash Musculoskeletal: Normal Range of Motion Extremities: Present: normal. Absent: edema - Labs and Meds Comprehensive Metabolic Panel 02/11/21 Range/Units 14:52 Sodium 139 (137-145) mmol/L Potassium 3.9 D (3.6-5.0) mmol/L Chloride 106.5 (98-107) mmol/L Carbon Dioxide 24 (22-30) mmol/L BUN 12 (7-17) mg/dL Creatinine 0.7 (0.6-1.2) mg/dL Glucose 90 (65-100) mg/dL Calcium 9.0 (8.4-10.2) mg/dL - Imaging and Cardiology EKG: pending, report reviewed Echo: pending - Telemetry EKG Rhythm: Sinus Rhythm - EKG Sinus rhythms and dysrhythmias: sinus rhythm
--- NOTE | 2021-02-12 14:41 | Discharge Summary ---
Providers - Providers Date of Admission: 02/12/21 08:54 Date of discharge: 02/12/21 Attending physician: TYRA PENA 02/10/21 18:03 Consult to Physician [CONS] Routine Comment: Consulting Provider: DEMETRI KOO Physician Instructions: Reason For Exam: SVT Hospitalization Condition: Fair Hospital course: Patient is 66 yo presented with palpitations. No chest pain. Patient had similar episode 3 to 4 years ago and was placed on Holter monitor by [facility] and patient also had echocardiogram at that time. No SVT was diagnosed. Patient is not on any medications. Patient had no fever or chills. When the EMS arrived they found the patient to be in a SVT with a heart rate of around 165. The patient was administered Adenosine with successful conversion to sinus rhythm . After cardioversion patient feels symptomatically better. She was seen in ED and admitted. Patient was evaluated by cardiology . She remained stable on Normal Sinus Rhythmand was discharged home on 02/12/21 on Metoprolol 50mg bid (1) Supraventricular tachycardia Current Visit: Yes Status: Acute Plan to address problem: Patient was given adenosine 6 mg twice followed by 12 mg once after which patient cardioverted. Patient in stable rhythm while in the emergency room. Patient started on Cardizem CD 120 mg once a day. Patient has borderline hypertension. blood pressure ranging from 172/94-149/78. (2) Hypertension Current Visit: Yes Status: Acute Qualifiers: Hypertension type: primary hypertension Qualified Code(s): I10 - Essential (primary) hypertension Plan to address problem: Patient started on Cardizem CD 120 mg once a day which is beneficial in paroxysmal SVT Monitor blood pressure and adjust medications (3) DVT prophylaxis Current Visit: Yes Status: Acute Plan to address problem: On heparin and GI prophylaxis 02/11/21 Patient with SVT. Managed with adenosine. Currently no palpitations or chest pain. cardiology consulted. 02/12/21 Patient stable to go home. Disposition: 01 HOME / SELF CARE / HOMELESS Final Discharge Diagnosis (Prints w/discharge instructions): 1.Supraventricular tachycardia - Discharge Diagnoses (1) Hypertension Status: Acute Qualifiers: Hypertension type: primary hypertension Qualified Code(s): I10 - Essential (primary) hypertension (2) PSVT (paroxysmal supraventricular tachycardia) Status: Acute Core Measure Documentation - Palliative Care Palliative Care/ Comfort Measures: Not Applicable - Core Measures Any of the following diagnoses?: none Exam - Constitutional Vitals: Temp Pulse Resp BP Pulse Ox 97.7 F 58 L 18 148/78 99 02/12/21 07:54 02/12/21 10:38 02/12/21 07:54 02/12/21 10:36 02/12/21 10:00 Plan Activity: advance as tolerated Diet: low fat, low cholesterol, low salt Plan of Treatment: 1.Follow up with PCP in 1 week 2.Follow up with Dr. Fuchs, Cardiology on 03/07/21 3.Follow up with Dr. Davis, Cardiology on 03/09/21 Follow up with: NAYELI AVILA [Other] - 7 Days Prescriptions: Losartan [Cozaar] 100 mg PO QDAY #30 tablet Metoprolol [Lopressor TAB] 50 mg PO BID #60 tablet
== END 2021-02-12 17:40 | disposition home or self-care (01) | DRG 310 ==
LOC: ED 12:45 → 4A 15:20 → OBSVTOIN 02-12 08:54 → 4A 02-12 17:36
PROVIDERS: ADMIT Internal Medicine; ATTEND Internal Medicine
DX: I47.1 Supraventricular tachycardia (principal); I10 Essential (primary) hypertension; E78.5 Hyperlipidemia, unspecified; Z87.891 Personal history of nicotine dependence; Z79.899 Other long term (current) drug therapy
CPT/HCPCS: 36415; 71045; 80048; 80053; 80307; 82550; 82553; 83735; 84439; 84443; 84484; 85025; 90732; 93005; 93306; G0378; J0360; J1644; J7030